=== PATIENT | female | born 1985 | race Caucasian/White ===

== ENCOUNTER 2020-04-17 14:13 | Emergency (ER) | payer OTHER, SELFPAY ==
[2020-04-17 14:25] VITALS: BP 132/70; PULSE 82; RESP 16; TEMP 37.3; O2SAT 99
--- NOTE | 2020-04-17 14:35 | ED.URI ---
HPI - URI/Sore Throat General Chief Complaint: Upper Respiratory Infection Stated Complaint: sore throat/ear pain Time Seen by Provider: 04/17/20 14:35 Source: patient Mode of arrival: ambulatory Limitations: no limitations History of Present Illness HPI Narrative: Martita Melissa was a 34 yo female who works at [employer] who comes with bilateral ear pain and sore throat. has had a low grade temperature and had to cancel endoscopy yesterday due to sore throat. Feels worse today She has been off of work for 2 weeks around November because of clearance for endoscopy; she has been isolating and not around other people her only venture out was to see her mother who was hospitalized at [facility] last week but there was severe restriction of visitors and she felt that she had not come in contact with him but it was really ill; she rates her likelihood of COVID exposure is very low Related Data Home Medications Medication Instructions Recorded Confirmed levonorgestrel [Mirena] 1 device INTRAUTERINE ONCE 04/17/20 04/17/20 Allergies Allergy/AdvReac Type Severity Reaction Status Date / Time No Known Allergies Allergy Verified 04/17/20 14:34 Review of Systems Review of Systems: Narrative: CONSTITUTIONAL: Denies fever, chills, sweats. EYES: Denies visual changes, redness, discharge. ENT: Denies rhinorrhea, congestion, has sore throat, has bilateral otalgia. CARDIOVASCULAR: Denies chest pain, palpitations, edema. RESPIRATORY: Denies dyspnea, wheezing, cough GASTROINTESTINAL: Denies abdominal pain, nausea, vomiting, diarrhea. GENITOURINARY: Denies dysuria, hematuria, abnormal discharge SKIN: Denies rash or itching. NEUROLOGIC: Denies numbness, or focal weakness. PSYCHIATRIC: Denies anxiety or depression. 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 There is no relevant family history pertinent to the presenting complaint. Exam Narrative: Exam Narrative: GENERAL: This is a well-nourished, well-developed patient, in moderate distress. HEAD: normocephalic, atraumatic. EYES: Sclera clear/white. Vision is grossly intact. EARS: External ears normal, auditory canals erythema with tenderness and without drainage, TMs normal without perforation. Hearing grossly intact. NOSE: External nose normal without nasal discharge, nares without redness, has rhinorrhea. THROAT: Mucous membranes moist, posterior pharynx erythema, pungent odor to breath NECK: Neck supple, mild tenderness CARDIOVASCULAR: Regular rate and rhythm without murmurs, gallops, or rubs. RESPIRATORY: Clear to auscultation. Breath sounds equal bilaterally. No wheezes, rales, or rhonchi. GASTROINTESTINAL: Abdomen soft, non-tender, SKIN: warm, intact with no suspicious lesions or rash, good texture and turgor. NEURO: awake, alert, and oriented to person, place and time. There were no obvious focal neurologic abnormalities. Steady gait EXTREMITIES: Normal range of motion. BACK: Nontender without deformity Course Course Emergency Course: Strep test - Started on Augmentin Vital Signs Vital signs: Vital Signs Temperature 99.1 F 04/17/20 14:25 Pulse Rate 82 04/17/20 14:25 Respiratory Rate 16 04/17/20 14:25 Blood Pressure 132/70 04/17/20 14:25 Pulse Oximetry 99 04/17/20 14:25 Temperature 99.1 F
== END 2020-04-17 14:53 | disposition home or self-care (01) ==
PROVIDERS: Emergency Provider Nurse Practitioner
DX: J02.9 Acute pharyngitis, unspecified (principal); H92.03 Otalgia, bilateral
CPT/HCPCS: 87081; 87880; 99213; G0463

== ENCOUNTER 2021-06-04 11:51 | Emergency (ER) | payer OTHER, SELFPAY ==
[2021-06-04 12:20] VITALS: BP 110/70; PULSE 93; RESP 16; TEMP 36.7; O2SAT 98
--- NOTE | 2021-06-04 12:40 | ED.LOWEXIN ---
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 Patient states she has 3 consecutive days of minor twists to her knee that occurred while walking, and going down bleachers. She also has a history of untreated minor injuries as a young adult. She complains of mild pain and edema especially medially that is worse with motion, better at rest or elevation. No bleeding, deformity, lockup, giveaway Related Data Home Medications Medication Instructions Recorded Confirmed famotidine 06/04/21 omeprazole 06/04/21 Allergies Allergy/AdvReac Type Severity Reaction Status Date / Time No Known Allergies Allergy Verified 04/17/20 14:34 Review of Systems Review of Systems: General/Constitutional: No weight loss,fever Eyes: N0: Redness,discharge Ears/Nose/Throat: No: Epistaxis,ear discharge Respiratory: Denies: Hemoptysis Gastrointestinal: No Vomiting, Bleeding-rectal Skin: No Lumps, eruption Neurologic: No Focal Weakness,Sz Hematologic: Denies: Petechiae/Purpura Psychiatric: No: Suicida ideationl All Other Systems: Reviewed and Negative [facility] Past Medical History Medical History (Updated 06/04/21 @ 12:44 by Jonas Gallo MD) Back pain Surgical History Surgical History History of dilatation and curettage Family History Family History Other No active medical problems Social History Social History Smoking status: Never smoker 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 There is no relevant family history pertinent to the presenting complaint Exam Narrative: General Appearance: Well appearing, Conjunctiva clear Mouth/Throat: Normal appearing, Normal lips,: Supple Respiratory: Airway patent, No respiratory distress MS-knee: Normal strength (mostly intact, limited flexion/extension by pain), Tenderness (medial joint line, with mild decreased ROM), Scant swelling (diffusely), Other (no anterior drawer, no collateral laxity, unable to do Elijah) Skin: Warm, Dry, Normal color Neurological: A&O x3, Speech clear, CN II-XII intact Psychiatric: Normal mood, Normal affect Course Vital Signs Vital signs: Vital Signs Temperature 98.0 F 06/04/21 12:20 Pulse Rate 93 06/04/21 12:20 Respiratory Rate 16 06/04/21 12:20 Blood Pressure 110/70 06/04/21 12:20 Pulse Oximetry 98 06/04/21 12:20 Temperature 98.0 F 06/04/21 12:20 Pulse Rate 93 06/04/21 12:20 Respiratory Rate 16 06/04/21 12:20 Blood Pressure 110/70 06/04/21 12:20 Pulse Oximetry 98 06/04/21 12:20 Discharge Plan Discharge Clinical Impression: Derangement of knee, right Patient Disposition: Home, Self-Care Condition: Stable Instructions: Meniscus Tear (ED) Prescriptions: New acetaminophen-codeine 300-30 mg tablet 1 - 1.5 tablet PO HS PRN (Reason: pain) Qty: 10 RF: 0 prednisone 20 mg tablet 60 mg PO DAILY Qty: 9 RF: 0 tramadol 50 mg tablet 50 - 75 mg PO TID PRN (Reason: pain) Qty: 20 RF: 0 No Action omeprazole 20 mg capsule,delayed release(DR/EC) RF: 0 famotidine 10 mg Tablet RF: 0 Follow-up/Referrals: UNKNOWN,DOCTOR [Primary Care Provider] - Stand Alone Forms: Work/School Release IP
== END 2021-06-04 12:53 | disposition home or self-care (01) ==
PROVIDERS: Emergency Provider Emergency Medicine
DX: M23.91 Unspecified internal derangement of right knee (principal); K21.9 Gastro-esophageal reflux disease without esophagitis
CPT/HCPCS: 99213; G0463

== ENCOUNTER 2021-11-06 10:50 | Emergency (ER) | payer OTHER, SELFPAY ==
[2021-11-06 10:58] VITALS: BP 100/49; PULSE 80; RESP 16; TEMP 37.1; O2SAT 99
--- NOTE | 2021-11-06 11:28 | ED.EAR ---
HPI - Ear Problem General Chief complaint: Ear Stated complaint: ear pain Time Seen by Provider: 11/06/21 11:28 Source: patient Mode of arrival: ambulatory Limitations: no limitations History of Present Illness MD Complaint: ear pain Related Data Allergies Allergy/AdvReac Type Severity Reaction Status Date / Time No Known Allergies Allergy Verified 11/06/21 11:17 Review of Systems Review of Systems: CONSTITUTIONAL: Denies malaise, chills, or fever. EYES: Denies visual changes, redness, or discharge. ENT: Denies rhinorrhea, congestion, sinus pain, and sore throat. Reports ear pain CARDIOVASCULAR: Denies chest pain, palpitations, or edema. RESPIRATORY: Denies cough or dyspnea. GASTROINTESTINAL: Denies abdominal pain, nausea, vomiting, diarrhea SKIN: Denies rash or itching. MUSCULOSKELETAL: Denies myalgia. NEUROLOGIC: Denies headache. 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 There is no relevant family history pertinent to the presenting complaint Exam Narrative: GENERAL: Well-appearing, well-nourished HEAD: Normocephalic EYES: PERRLA, conjunctivae clear ENT: Nares clear. Mucous membranes moist. TM with fluid bubbles, erythematous canals bilat; mild tragal tenderness. Oropharynx not erythematous without lesions. Tonsils not enlarged and without exudate, no drooling, no hoarseness, no trismus, uvula midline. NECK: Supple. No lymphadenopathy CHEST: Clear to auscultation, breath sounds equal. No wheezing, rhonchi, rales, or stridor. No respiratory distress, speaks in full sentences. HEART: Regular rate and rhythm. No murmur heard. SKIN: Warm, dry, no rash. NEURO: Alert and oriented x3. PSYCH: Normal mood and affect Course Course Emergency Course: Patient is aware of diagnosis, understands and agrees to treatment plan. Anticipatory guidance given. Patient agrees to follow-up as directed and is aware of reasons to seek care at the emergency department. Portions of this record may have been created with voice recognition software Level of Care: Express Care Visit Vital Signs Vital signs: Vital Signs Temperature 98.8 F 11/06/21 10:58 Pulse Rate 80 11/06/21 10:58 Respiratory Rate 16 11/06/21 10:58 Blood Pressure 100/49 L 11/06/21 10:58 Pulse Oximetry 99 11/06/21 10:58 Temperature 98.8 F 11/06/21 10:58 Pulse Rate 80 11/06/21 10:58 Respiratory Rate 16 11/06/21 10:58 Blood Pressure 100/49 L 11/06/21 10:58 Pulse Oximetry 99 11/06/21 10:58 Reviewed Medical Decision Making MDM Narrative Medical decision making narrative: Differential diagnosis considered: Coronavirus, strep pharyngitis, allergic rhinitis, upper respiratory tract infection, sinusitis, rhinosinusitis, nasopharyngitis, viral pharyngitis, otitis media, otitis externa, eustachian tube dysfunction, foreign body, cerumen impaction. Exam findings show no acute concerns or changes; patient is non-toxic appearing and is in no distress. Patient is appropriate for outpatient treatment and follow-up. Vital Signs Vital Signs: Vital Signs Temperature 98.8 F 11/06/21 10:58 Pulse Rate 80 11/06/21 10:58 Respiratory Rate 16 11/06/21 10:58 Blood Pressure 100/49 L 11/06/21 10:58 Pulse Oximetry 99 02
== END 2021-11-06 11:39 | disposition home or self-care (01) ==
PROVIDERS: Emergency Provider Nurse Practitioner Family
DX: H66.003 Acute suppurative otitis media without spontaneous rupture of ear drum, bilateral (principal); K21.9 Gastro-esophageal reflux disease without esophagitis
CPT/HCPCS: 99213; G0463

== ENCOUNTER 2022-06-06 15:36 | Emergency (ER) | payer OTHER, SELFPAY ==
[2022-06-06 15:52] VITALS: BP 116/72; PULSE 80; RESP 18; TEMP 36.2; O2SAT 100
--- NOTE | 2022-06-06 16:40 | ED.FEMALEGU ---
HPI - Female Genitourinary General Chief complaint: Urogenital-Female Stated complaint: UTI Time Seen by Provider: 06/06/22 16:10 Source: patient, RN notes reviewed and old records reviewed Mode of arrival: ambulatory Limitations: no limitations History of Present Illness HPI Narrative: 36-year-old female who presents to [facility] care with complaints of urinary burning, frequency and urgency, lower abdominal cramping, pressure and some lower back pain which just started today.Patinet denies any vaginal discharge or concern for STD, reports no known fevers, no chills or sweats, denies any nausea or vomiting. MD elicited complaint: dysuria and back pain Location of symptoms: low back and other (lower abdomen) Severity scale (1-10): 5 Related Data Home Medications Medication Instructions Recorded Confirmed famotidine 40 mg tablet 40 mg PO DAILY 05/13/22 06/06/22 omeprazole 20 mg capsule,delayed 20 mg PO DAILY 05/13/22 06/06/22 release Allergies Allergy/AdvReac Type Severity Reaction Status Date / Time No Known Allergies Allergy Verified 05/13/22 15:34 Review of Systems Review of Systems: CONSTITUTIONAL: Denies fever, chills, or sweats. EYES: Denies visual changes, redness, or discharge. ENT: Denies rhinorrhea, congestion, sore throat, or otalgia. CARDIOVASCULAR: Denies chest pain, palpitations, or edema. RESPIRATORY: Denies cough or dyspnea. GASTROINTESTINAL: Lower abdominal cramping and pressure,no nausea, vomiting, or diarrhea. GENITOURINARY: Positive for dysuria no visible hematuria. SKIN: Denies rash or itching. MUSCULOSKELETAL: Denies back pain, joint pain, or myalgia. NEUROLOGIC: Denies headache, numbness, or weakness. PSYCHIATRIC: Denies anxiety or depression. All systems reviewed & are unremarkable except as noted in HPI and below PMFSH Past Medical History Medical History Abnormal Pap smear of cervix 04/20/2012 ASCUS HPV+ colpo 05/12/2012 inflammation Back pain Encounter for IUD insertion 03/25/04 Mirena insertion 07/26/09 Mirena insertion 03/22/14 Mirena insertion 03/21/19 Mirena removal/reinsertion Encounter for IUD removal 05/29/08 Mirena removal 05/28/12 Mirena removal--migration 03/21/19 Mirena removal/reinsertion HPV in female Lesion of right [place] kidney Missed 09/15/12 Ovarian cyst rupture (~12/2018) Surgical History Surgical History History of colposcopy with cervical biopsy 05/12/12 inflammation History of dilatation and curettage 09/15/12 suction d&c--incomplete AB History of tonsillectomy (12/22/11) Family History Family History Mother Heart disease Hypertension Cerebrovascular accident Kidney disease Alcohol abuse Father Alcohol abuse Grandparent Renal cell carcinoma maternal grandfather Social History Social History (Updated 05/13/22 @ 15:37 by Ivette Contreras [facility]) Smoking status: Never smoker Alcohol intake: current Alcohol use details: 2 per month Substance use: current Substance use type: other Other substance usage details: drops Additional living arrangements comments: Engaged 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 There is no pertinent family history relevant to presentig complaint. Exam Narrative: GENERAL: Well-appearing, well-nourished, and in no acute distress. HEAD: Normocephalic, atraumatic. EYES: PERRLA and EOMI. ENT: Nares clear, no rhinorrhea or epistaxis. Mucous membranes moist.TM's normal with good light reflex, throat normal with no swelling NECK: Supple.no lymphadenopat
== END 2022-06-06 16:51 | disposition home or self-care (01) ==
PROVIDERS: Emergency Provider Registered Nurse
DX: N39.0 Urinary tract infection, site not specified (principal)
CPT/HCPCS: 81003; 87077; 87086; 87186; 99213; G0463

== ENCOUNTER 2023-02-12 16:18 | Emergency (ER) | payer OTHER, SELFPAY ==
--- NOTE | 2023-02-12 16:23 | ED.SKABFB ---
HPI - Skin/Abscess/Foreign Bdy General Chief complaint: Skin/Abscess/Foreign Body Stated complaint: Rash Time Seen by Provider: 02/12/23 16:23 Source: patient Mode of arrival: ambulatory Limitations: no limitations History of Present Illness HPI narrative: Patient is a 29-year-old female who presents with redness and swelling to left side of her nose. Patient states she has had cellulitis in the same spot annually for 10 years. Denies any drainage that has grown in size since last night. Patient states the swelling makes her I feel numb but denies any vision changes or numbness and tingling to the rest of her face. Denies any headache, fever, chills, congestion, cough, sore throat, ear pain. Related Data Home Medications Medication Instructions Recorded Confirmed levonorgestrel 21 mcg/24 hours (8 1 device intrauterine ONCE 02/12/23 02/12/23 yrs) 52 mg intrauterine device (Mirena) tramadol 50 mg tablet 50 mg BID 02/12/23 02/12/23 Allergies Allergy/AdvReac Type Severity Reaction Status Date / Time No Known Allergies Allergy Verified 02/12/23 16:28 Review of Systems Review of Systems: All systems reviewed & are unremarkable except as noted in HPI and below Constitutional: Constitutional: Denies body ache(s), Denies chills, Denies fatigue, Denies fever(s), Denies headache(s), Denies malaise and Denies weakness Eyes: Eyes: Denies blurry vision, Denies irritation and Denies loss of vision ENT: Denies otalgia, Denies headache(s), Denies nasal discharge, Reports nose pain, Denies sinus pain and Denies sore throat Cardiovascular: Cardiovascular: Denies chest pain, Denies irregular heart rhythm and Denies dyspnea Respiratory: Respiratory: Denies dyspnea Gastrointestinal: Gastrointestinal: Denies abdominal pain, Denies melena, Denies hematochezia, Denies diarrhea, Denies nausea and Denies vomiting Musculoskeletal: Musculoskeletal: Denies back pain, Denies myalgias and Denies arthralgias Integumentary/Breasts: Skin/Breast: Denies pruritus, Denies rash and Reports skin swelling Neurologic: Denies headache(s), Denies loss of vision and Denies weakness Psychiatric: Psychiatric: Reports no additional psychiatric complaints Endocrine: Endocrine: Denies fatigue PMFSH Past Medical History Medical History Abnormal Pap smear of cervix 04/20/2012 ASCUS HPV+ colpo 05/12/2012 inflammation Back pain Encounter for IUD insertion 03/25/04 Mirena insertion 07/26/09 Mirena insertion 03/22/14 Mirena insertion 03/21/19 Mirena removal/reinsertion Encounter for IUD removal 05/29/08 Mirena removal 05/28/12 Mirena removal--migration 03/21/19 Mirena removal/reinsertion HPV in female Lesion of right [place] kidney Missed 09/15/12 Ovarian cyst rupture (~12/2018) Surgical History Surgical History History of colposcopy with cervical biopsy 05/12/12 inflammation History of dilatation and curettage 09/15/12 suction d&c--incomplete AB History of tonsillectomy (12/22/11) Family History Family History Mother Heart disease Hypertension Cerebrovascular accident Kidney disease Alcohol abuse Father Alcohol abuse Grandparent Renal cell carcinoma maternal grandfather Social History Social History (Updated 05/13/22 @ 15:37 by MARY Trevino) Smoking status: Never smoker Alcohol intake: current Alcohol use details: 2 per month Substance use: current Substance use type: other Other substance usage details: drops Living arrangements: other Additional living arrangements comments: Engaged Occupation/Education: occupation 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
[2023-02-12 16:28] VITALS: BP 103/49; PULSE 74; RESP 12; TEMP 36.6; O2SAT 99
== END 2023-02-12 16:51 | disposition home or self-care (01) ==
PROVIDERS: Emergency Provider Nurse Practitioner Family
DX: L03.811 Cellulitis of head [any part, except face] (principal)
CPT/HCPCS: 99213; G0463

== ENCOUNTER 2023-06-04 12:45 | Emergency (ER) | payer OTHER, SELFPAY ==
[2023-06-04 13:20] VITALS: BP 113/67; PULSE 73; RESP 16; TEMP 36.7; O2SAT 100
--- NOTE | 2023-06-04 14:28 | ED.URI ---
HPI - URI/Sore Throat General Chief Complaint: Upper Respiratory Infection Stated Complaint: Ears Irritation/Sore Throat Time Seen by Provider: 06/04/23 14:10 Source: patient, family, RN notes reviewed and old records reviewed Mode of arrival: ambulatory Limitations: no limitations History of Present Illness HPI Narrative: 37-year-old female presents to [facility] with complaints 3 day history ear pain, sore throat, acute cough with congestion. Patient reports that she has been taking DayQuil, NyQuil for her symptoms. Patient reports no history of asthma and has had tonsils out in past, Patient denies any drainage from her ears or any tinnitus states history of past ear infections and sinusitis.Patient reports no known fevers or body aches. MD elicited complaint: cough, sore throat, rhinorrhea, nasal congestion and other (ear pain) Pertinent past history: sinusitis and other (ear infections) Onset (ago): day(s) (3) Severity: moderate Treatments prior to arrival: other (DayQuil and NyQuil) Related Data Home Medications Medication Instructions Recorded Confirmed levonorgestrel 21 mcg/24 hours (8 1 device intrauterine ONCE 02/12/23 02/12/23 yrs) 52 mg intrauterine device (Mirena) famotidine 06/04/23 omeprazole 06/04/23 Allergies Allergy/AdvReac Type Severity Reaction Status Date / Time No Known Allergies Allergy Verified 06/04/23 12:57 Review of Systems Review of Systems: CONSTITUTIONAL: Denies malaise, chills, sweats, or fever. EYES: Denies visual changes, redness, or discharge. ENT: Reports rhinorrhea, congestion, sinus pain, otalgia and sore throat. CARDIOVASCULAR: Denies chest pain, palpitations, or edema. RESPIRATORY: Reports cough.? Denies dyspnea. GASTROINTESTINAL: Denies abdominal pain, nausea, vomiting, diarrhea SKIN: Denies rash or itching. MUSCULOSKELETAL: Denies myalgia. NEUROLOGIC: Denies headache. All systems reviewed & are unremarkable except as noted in HPI and below PMFSH Past Medical History Medical History Abnormal Pap smear of cervix 04/20/2012 ASCUS HPV+ colpo 05/12/2012 inflammation Back pain Encounter for IUD insertion 03/25/04 Mirena insertion 07/26/09 Mirena insertion 03/22/14 Mirena insertion 03/21/19 Mirena removal/reinsertion Encounter for IUD removal 05/29/08 Mirena removal 05/28/12 Mirena removal--migration 03/21/19 Mirena removal/reinsertion HPV in female Lesion of right [place] kidney Missed 09/15/12 Ovarian cyst rupture (~12/2018) Surgical History Surgical History History of colposcopy with cervical biopsy 05/12/12 inflammation History of dilatation and curettage 09/15/12 suction d&c--incomplete AB History of tonsillectomy (12/22/11) Family History Family History Mother Heart disease Hypertension Cerebrovascular accident Kidney disease Alcohol abuse Father Alcohol abuse Grandparent Renal cell carcinoma maternal grandfather Social History Social History (Updated 05/13/22 @ 15:37 by Ivette Contreras [facility]) Smoking status: Never smoker Alcohol intake: current Alcohol use details: 2 per month Substance use: current Substance use type: other Other substance usage details: drops Living arrangements: other Additional living arrangements comments: Engaged Occupation/Education: occupation 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 There is no relevant family history pertinent to the presenting complaint Exam Narrative: GENERAL: Well-appearing, well-nourished, and in no ac
== END 2023-06-04 14:37 | disposition home or self-care (01) ==
PROVIDERS: Emergency Provider Registered Nurse
DX: J06.9 Acute upper respiratory infection, unspecified (principal); Z79.899 Other long term (current) drug therapy; Z20.822 Contact with and (suspected) exposure to COVID-19
CPT/HCPCS: 87081; 87426; 87804; 87880; 99213; C9803; G0463

== ENCOUNTER 2023-07-03 18:52 | Emergency (ER) | payer OTHER, SELFPAY ==
[2023-07-03 19:05] VITALS: BP 103/72; PULSE 74; RESP 16; TEMP 37.3; O2SAT 99
[2023-07-03 19:06] VITALS: BP 103/72; PULSE 74; RESP 16; TEMP 37.3; O2SAT 99
--- NOTE | 2023-07-03 19:17 | ED.URI ---
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 She has been taking [id number] medication without much relief. She was seen at [facility] on 06/04/2023 for similar symptoms and given a short course of steroids, which provided short term relief. Related Data Home Medications Medication Instructions Recorded Confirmed levonorgestrel 21 mcg/24 hours (8 1 device intrauterine ONCE 02/12/23 02/12/23 yrs) 52 mg intrauterine device (Mirena) famotidine 06/04/23 omeprazole 06/04/23 Allergies Allergy/AdvReac Type Severity Reaction Status Date / Time No Known Allergies Allergy Verified 07/03/23 19:04 Review of Systems Review of Systems: CONSTITUTIONAL: Denies body aches, fever, chills, or sweats. EYES: Denies visual changes, redness, or discharge. ENT: Denies rhinorrhea, sore throat. + congestion, bilateral ear pain and pressure CARDIOVASCULAR: Denies chest pain, palpitations, or edema. RESPIRATORY: Denies dyspnea.+ cough GASTROINTESTINAL: Denies abdominal pain, nausea, vomiting, or diarrhea. GENITOURINARY: Denies dysuria or hematuria. SKIN: Denies rash, itching, or wounds. MUSCULOSKELETAL: Denies back pain, joint pain, or myalgia. NEUROLOGIC: Denies headache, numbness, tingling, or weakness. PSYCH: Denies depression or anxiety. [facility] Past Medical History Medical History Abnormal Pap smear of cervix 04/20/2012 ASCUS HPV+ colpo 05/12/2012 inflammation Back pain Encounter for IUD insertion 03/25/04 Mirena insertion 07/26/09 Mirena insertion 03/22/14 Mirena insertion 03/21/19 Mirena removal/reinsertion Encounter for IUD removal 05/29/08 Mirena removal 05/28/12 Mirena removal--migration 03/21/19 Mirena removal/reinsertion HPV in female Lesion of right [place] kidney Missed 09/15/12 Ovarian cyst rupture (~12/2018) Surgical History Surgical History History of colposcopy with cervical biopsy 05/12/12 inflammation History of dilatation and curettage 09/15/12 suction d&c--incomplete AB History of tonsillectomy (12/22/11) Family History Family History Mother Heart disease Hypertension Cerebrovascular accident Kidney disease Alcohol abuse Father Alcohol abuse Grandparent Renal cell carcinoma maternal grandfather Social History Social History Smoking status: Never smoker Alcohol intake: current Alcohol use details: 2 per month Substance use: current Substance use type: other Other substance usage details: drops Living arrangements: other Additional living arrangements comments: Engaged Occupation/Education: occupation 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 Please see nursing chart for further information. There is no relevant family history pertinent to the presenting complaint Exam Narrative: GENERAL: Mildly ill-appearing, well-nourished, and in no acute distress. HEAD: Normocephalic, atraumatic. EYES: EOMI. No redness or drainage. Conjunctivae normal. ENT: Mucous membranes pink and moist. Nares congested. No rhinorrhea. TMs normal bilaterally
== END 2023-07-03 19:25 | disposition home or self-care (01) ==
PROVIDERS: Emergency Provider Nurse Practitioner
DX: J40 Bronchitis, not specified as acute or chronic (principal); J01.90 Acute sinusitis, unspecified
CPT/HCPCS: 99213; G0463

== ENCOUNTER 2025-05-04 14:21 | Emergency (ER) | payer SELFPAY ==
[2025-05-04 14:32] VITALS: BP 138/85; PULSE 82; RESP 16; TEMP 36.6; O2SAT 97
--- NOTE | 2025-05-04 15:13 | ED_ITS ---
HPI - Skin/Abscess/Foreign Bdy General Chief complaint: Wound/Laceration Stated complaint: Wound On Nose Time Seen by Provider: 05/04/25 14:40 Source: patient and RN notes reviewed Mode of arrival: ambulatory Limitations: no limitations History of Present Illness HPI narrative: 39-year-old female presents Express Care complaining of redness and swelling and pain to her nose her approximally 2-3 days. Patient has a history of cellulitis to her nose. Patient denies picking at her skin or popping isn't on her nose. Patient does report there is a wound on her nose but unsure how he got there. Patient has any fevers, body aches, chills, eye pain, vision problems, or any other symptoms. Related Data Home Medications ?Medication ?Instructions ?Recorded ?Confirmed ?Last Taken ?Type levonorgestrel (Mirena) 1 device intrauterine ONCE 0 02/12/23 01/25/25 Unknown History Allergies Allergy/AdvReac Type Severity Reaction Status Date / Time No Known Allergies Allergy Verified 05/04/25 14:39 Review of Systems Review of Systems: CONSTITUTIONAL: Denies fever, chills, or sweats. EYES: Denies visual changes, redness, or discharge. ENT: Denies rhinorrhea, congestion, sore throat, or otalgia. CARDIOVASCULAR: Denies chest pain, palpitations, or edema. RESPIRATORY: Denies cough or dyspnea. GASTROINTESTINAL: Denies abdominal pain, nausea, vomiting, or diarrhea. GENITOURINARY: Denies dysuria or hematuria. SKIN: Denies rash or itching. Positive for redness and swelling to nose. MUSCULOSKELETAL: Denies back pain, joint pain, or myalgia. NEUROLOGIC: Denies headache, numbness, or weakness. PSYCHIATRIC: Denies anxiety or depression. All other systems reviewed are negative, except as documented in HPI. [facility] Past Medical History Medical History Lesion of right [place] kidney Missed 09/15/12 HPV in female Abnormal Pap smear of cervix 04/20/2012 ASCUS HPV+ colpo 05/12/2012 inflammation Encounter for IUD removal 05/29/08 Mirena removal 05/28/12 Mirena removal--migration 03/21/19 Mirena removal/reinsertion Encounter for IUD insertion 03/25/04 Mirena insertion 07/26/09 Mirena insertion 03/22/14 Mirena insertion 03/21/19 Mirena removal/reinsertion Ovarian cyst rupture (~12/2018) Back pain Surgical History Surgical History History of colposcopy with cervical biopsy 05/12/12 inflammation History of tonsillectomy (12/22/11) History of dilatation and curettage 09/15/12 suction d&c--incomplete AB Family History Family History Mother Heart disease Hypertension Cerebrovascular accident Kidney disease Alcohol abuse Father Alcohol abuse Grandparent Renal cell carcinoma maternal grandfather Social History Social History Smoking status: Never smoker Alcohol intake: current Alcohol use details: 2 per month Substance use: current Substance use type: other Other substance usage details: drops Do You Feel Safe in your Home?: Yes Lack of Transportation: No Lack of Food: Never True Current Housing: I Have Housing Concerned About Future Housing: No Difficulty Paying Gas/Electric Bills: No Difficulty Paying for Meds: No Currently Unemployed: No Education: High School Diploma/GED Difficulty w/ Childcare or Family Care: No Living arrangements: other Additional living arrangements comments: Engaged Occupation/Education: occupation 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 There is no relevant family history pertinent to the patient complaint. Exam Narrative: GENERAL: This is a well-nourished, well-developed adult, in no apparent distress. They are non ill-appearing, nontoxic appearing. HEAD: normocephalic, atraumatic. EYES: Sclera clear/white. Conjunctiva normal. Vision is grossly intact. Extraocular movements intact. Pupils PERRLA. Upper and lower eyelids normal bilaterally. No periorbital swelling or redness. EARS: External ears normal, Hearing grossly intact. NOSE: External nose erythematous with puncture wound present. No exudate. Skin is indurated and tender to palpate. No area of fluctuance. No obvious nasal discharge, nasal turbinates without redness, no rhinorrhea. THROAT: Mucous membranes moist, NECK: Neck supple, CARDIOVASCULAR: Regular rate and rhythm RESPIRATORY: Respiratory rate normal, respiratory effort nonlabored, no respiratory distress SKIN: warm, Dry, intact with no suspicious lesions or rash, good texture and turgor. NEURO: awake, alert, and oriented to person, place and time. There were no obvious focal neurologic abnormalities. EXTREMITIES: No joint tenderness, effusion, or edema noted. Course Course Emergency Course: Portions of this record may have been created with voice recognition software Level of Care: Express Care Visit Vital Signs Vital signs: Vital Signs Temperature 97.8 F 05/04/25 14:32 Pulse Rate 82 05/04/25 14:32 Respiratory Rate 16 05/04/25 14:32 Blood Pressure 138/85 05/04/25 14:32 Pulse Oximetry 97 05/04/25 14:32 Oxygen Delivery Room Air 05/04/25 14:32 Temperature 97.8 F 05/04/25 14:32 Pulse Rate 82 05/04/25 14:32 Respiratory Rate 16 05/04/25 14:32 Blood Pressure 138/85 05/04/25 14:32 Pulse Oximetry 97 05/04/25 14:32 Oxygen Delivery Room Air 05/04/25 14:32 Reviewed MDM - Skin/Abscess/Foreign Bdy MDM Narrative Medical decision making narrative: Likely patient has cellulitis to her nose. Puncture wound is present to nose unclear if it is from acne or from a wound. Patient is unsure. Likely the source of infection. Will treat with cephalexin. Discussed physical exam findings. Advised supportive measures and signs/symptoms to go to the ER. Pt is appropriate for outpt treatment and f/u. Differential Diagnosis Differential diagnosis: Likely abscess of skin or subcutaneous tissue, cellulitis and contact dermatitis Critical Care Time Critical Care Time Critical Care Time: No Discharge Plan Discharge Clinical Impression: Cellulitis of external nose Patient Disposition: Home Condition: Stable Instructions: Antibiotic Form, Cellulitis (ED) Additional Instructions: Wash the area with mild soap and water do not use peroxide. Ibuprofen or Tylenol as needed for pain. Follow instructions on the bottle. Take antibiotic until it's gone. follow-up with PCP in 3-5 days. He developed worsening redness, swelling, pain, vision problems, eye pain, fevers or any serious concerns please go to the ER immediately. Patient Language: Ukrainian Prescriptions: New cephalexin 500 mg capsule 500 mg PO Q6H 7 Days Qty: 28 0RF fluconazole 150 mg tablet 150 mg PO Q72H 3 Days Qty: 2 0RF Rx Instructions: May repeat dose after 72 hours if symptoms persist. No Action Mirena 21 mcg/24 hours (8 yrs) 52 mg Intrauterine Device 1 device INTRAUTERINE ONCE Rx Instructions: as a single dose Follow-up/Referrals: Guillermo,STEFFI Diaz [Primary Care Provider, Unknown] Time of Disposition: 14:51
== END 2025-05-04 15:00 | disposition home or self-care (01) ==
PROVIDERS: PCP Physician Assistant
DX: J34.0 Abscess, furuncle and carbuncle of nose (principal)
CPT/HCPCS: 99213; G0463